=== PATIENT | male | born 1995 | race African-American/Black ===

== ENCOUNTER 2024-07-11 17:59 | Inpatient (IN) | payer SELFPAY ==
[~2024-07-11] VITALS: Ht 185.4 cm; Wt 90.7 kg
[2024-07-11 18:07] VITALS: O2SAT 95
[2024-07-11 18:31] LABS: BASOPHILS % 0.2 % (0.0-2.0); EOSINOPHILS % 0.2 % (0.0-5.0); HEMATOCRIT. 45.7 % (42.0-52.0); LYMPHOCYTES % 19.2 % (20.0-50.0); MEAN CORPUSCULAR HEMOGLOBIN 28.9 pg (28.0-32.0); MEAN CORPUSCULAR HGB CONC 32.8 g/dL (31.0-37.0); MEAN CORPUSCULAR VOLUME 88.1 fL (80.0-94.0); MONOCYTES % 4.4 % (2.0-8.0); PLATELET 196 x1000/uL (130-400); RED BLOOD CELL COUNT 5.19 mill/uL (4.7-6.1); RED CELL DISTRIBUTION WIDTH 14.2 % (11.6-14.6); WHITE BLOOD COUNT 14.8 x1000/uL (4.5-11.0)
[2024-07-11 18:37] LABS: CARBON DIOXIDE 25 mEq/L (21-32); CHLORIDE 112 mEq/L (98-107); POTASSIUM 3.6 mEq/L (3.5-5.1); SODIUM 147 mEq/L (136-145)
[2024-07-11 18:38] LABS: CALCIUM 9.8 mg/dL (8.7-10.4)
[2024-07-11 18:43] LABS: CREATININE 1.2 mg/dL (0.6-1.3); ETHANOL BLOOD 295 mg/dL (<10); GLUCOSE 131 mg/dL (70-105); UREA NITROGEN BLOOD 11 mg/dL (9-23)
[2024-07-11] MEDS ORDERED: ONDANSETRON HCL 4MG/2ML INJ IV ONE (18:45)
[2024-07-11] MEDS: ONDANSETRON HCL 4MG/2ML INJ IV NR (21:09)
[2024-07-11] MEDS ORDERED: GUAIFENESIN 200MG/10ML SUGAR FREE UDC PO PRN (22:30)
[2024-07-11] MEDS ORDERED: ONDANSETRON HCL 4MG/2ML INJ IV PRN (22:30)
[2024-07-11] MEDS ORDERED: CLONIDINE 0.1MG TABLET PO PRN (22:30)
[2024-07-11] MEDS ORDERED: LORAZEPAM 0.5MG TABLET PO PRN (22:30)
[2024-07-11] MEDS ORDERED: DOCUSATE SODIUM 100MG CAPSULE PO PRN (22:30)
[2024-07-11] MEDS ORDERED: ACETAMINOPHEN 325MG TABLET PO PRN ×2 (22:30)
[2024-07-11] MEDS ORDERED: IPRATROPIUM/ALBUTEROL 0.5-3(2.5)MG/3ML NEB HHN PRN (22:30)
[2024-07-12 00:17] LABS: ALANINE AMINOTRANSFERASE 31 IU/L (10-49); ALBUMIN 4.5 g/dL (3.2-4.8); ASPARTATE AMINOTRANSFERASE 26 IU/L (<34)
[2024-07-12 00:18] LABS: AMMONIA < 17 uMol/L (<32); BILIRUBIN DIRECT 0.1 mg/dL (<=3.0); BILIRUBIN TOTAL 0.4 mg/dL (0.1-1.0); PROTEIN TOTAL 7.4 g/dL (6.0-8.3)
[2024-07-12] MEDS: MVI, ADULT NO.1 10 ML, FOLIC ACID 1 MG, THIAMINE HCL 100 MG in SODIUM CHLORIDE 0.9% 1,0... IV NR (00:43)
[2024-07-12 06:29] VITALS: BP 116/55; PULSE 77; RESP 18; TEMP 36.50292; O2SAT 100
[2024-07-12] MEDS: DEXT 5%/0.45% NACL 1000ML 1,000 ML IV SCH (09:00)
[2024-07-12] MEDS ORDERED: FAMO40TA70 PO (12:53)
[2024-07-12] MEDS ORDERED: THIA50TA12 PO (12:53)
[2024-07-12] MEDS ORDERED: MULT-1116 PO (12:53)
[2024-07-12 16:08] LABS: CREATINE KINASE 324 IU/L (46-171)
[2024-07-12 17:26] VITALS: BP 109/68; PULSE 62; RESP 18; TEMP 36.66960; O2SAT 99
== END 2024-07-12 17:49 | disposition home or self-care (01) | DRG 52 ==
LOC: EDSEX 17:59 → ER 18:45 → 5WST 20:17 → EDBEDREQSVC 20:20 → EDBEDREQ 20:20 → EDBEDREQSVC 07-12 02:30 → EDBEDREQDT 07-12 02:30 → EDBEDREQTM 07-12 02:30
PROVIDERS: ADMIT Preventive Medicine Clinical Informatics; ATTEND Preventive Medicine Clinical Informatics
DX: G92.8 Other toxic encephalopathy (principal); E87.0 Hyperosmolality and hypernatremia; F10.129 Alcohol abuse with intoxication, unspecified; Y90.8 Blood alcohol level of 240 mg/100 ml or more; R73.9 Hyperglycemia, unspecified; F19.10 Other psychoactive substance abuse, uncomplicated; E86.9 Volume depletion, unspecified; F32.A Depression, unspecified
CPT/HCPCS: 36415; 71045; 80048; 80076; 80320; 82140; 82550; 84425; 85025; 99285; J2405; J3411; J3490; J7030; G0480